=== PATIENT | male | born 1985 | race Caucasian/White ===

== ENCOUNTER 2017-01-15 21:18 | Emergency (ER) | payer OTHER ==
[~2017-01-15] VITALS: Ht 182.9 cm; Wt 115.7 kg
--- NOTE | 2017-01-15 21:33 | PHYS DOC ---
Adult General Chief Complaint Chief Complaint: HEADACHE HPI HPI Patient is a 31 year old M who presents with headache 1 week. Patient states he has had a headache over the past week and has progressively gotten worse with today being the worst. Patient denies any fevers associated with a headache. Patient does have associated nausea without vomiting. Patient states the headache came on gradual not sudden and has progressively been there for the week. Patient states the headache does not come and go. Patient was able to go to work this week. Patient denies any vision changes. Patient denies a history of migraine headaches. Patient denies any chest pain or shortness of breath. Patient has no other complaints. Review of Systems Review of Systems GEN: Denies fevers, chills, sweats HEENT: Denies blurred vision, sore throat CV: Denies chest pain RESP: Denies shortness of air, cough GI: Denies n/v/d NEURO: Headache MSK: Denies weakness, joint pain/swelling Current Medications Current Medications Current Medications Medications (Trade) Dose Ordered Sig/Noe Start Time Stop Time Status Last Admin Dose Admin Dexamethasone Sodium Phosphate (Decadron) 10 mg 1X ONCE 01/15/17 22:00 01/15/17 22:01 DC 01/15/17 21:52 10 MG Diphenhydramine HCl (Benadryl) 50 mg 1X ONCE 01/15/17 22:00 01/15/17 22:01 DC 01/15/17 21:52 50 MG Ketorolac Tromethamine (Toradol) 30 mg 1X ONCE 01/15/17 22:30 01/15/17 22:31 01/15/17 22:17 30 MG Magnesium Sulfate/ Dextrose 50 ml @ 25 mls/hr 1X ONCE 01/15/17 22:00 01/15/17 23:59 01/15/17 21:53 25 MLS/HR Metoclopramide HCl (Reglan) 10 mg 1X ONCE 01/15/17 22:00 01/15/17 22:01 DC 01/15/17 21:52 10 MG Sodium Chloride 1,000 ml @ 1,000 mls/hr 1X ONCE 01/15/17 22:00 01/15/17 22:59 01/15/17 21:53 1,000 MLS/HR Allergies Allergies Allergies Coded Allergies Type Severity Reaction Last Updated Verified No Known Drug Allergies 01/15/17 No Physical Exam Physical Exam GEN.: No apparent distress. Alert and oriented. HEENT: Head is normocephalic, atraumatic NECK: Supple. LUNGS: CTAB. HEART: RRR, S1, S2 present. Peripheral pulses intact ABDOMEN: Soft, nontender. Positive bowel sounds. EXTREMITIES: Without any cyanosis. NEUROLOGIC: Normal speech, normal tone, cranial nerves II through XII are grossly intact without any focal neurologic deficits PSYCHIATRIC: Normal affect, normal mood. SKIN: No ulcerations Current Patient Data Vital Signs Vital Signs Date Time Temp Pulse Resp B/P (MAP) Pulse Ox O2 Delivery O2 Flow Rate FiO2 01/15/17 21:26 98.1 83 18 165/103 (123) 97 Room Air 98.1 EKG EKG [] Radiology/Procedures Radiology/Procedures CT scan of the head NAD [] Course & Med Decision Making Course & Med Decision Making Pertinent Labs and Imaging studies reviewed. (See chart for details) ED course: Patient was seen and examined emergency room CT scan of the head without contrast, 30 mg of Toradol IV, 10 mg Reglan IV, 2 g of magnesium sulfate, 50 mg of Benadryl, were ordered 2220: On reexamination the patient states his headache is improved and recommended he follow up his PCP for further evaluation and management. MDM: After reviewing the chart, CC/HPI/PMH, physical exam, [radiological results], I do not believe the patient has a significant intracranial process warranting further workup and/or admission at this time. Based on the patient's history of present illness and physical findings I have low suspicion for acute subarachnoid hemorrhage and do not believe an LP is indicated at this time. On reexamination the patient has clinically improved believe the patient is stable for discharge. Patient would need to find a ride home due to the medications he received in emergency room. Additional verbal discharge instructions were provided to the patient and that if symptoms get worse or any new symptoms arise that are worrisome to the patient he is to return to the emergency room immediately [] Dragon Disclaimer Dragon Disclaimer This electronic medical record was generated, in whole or in part, using a voice recognition dictation system. Departure Departure Impression: Primary Impression: Headache Disposition: 01 HOME, SELF-CARE Condition: IMPROVED Referrals: NO PCP (PCP) Patient Instructions: General Headache Without Cause Additional Instructions: Please follow up with your family doctor in 1-2 days and return if symptoms increase Problem Qualifiers Primary Impression: Headache Headache type: unspecified Headache chronicity pattern: unspecified pattern Intractability: not intractable Qualified Codes: R51 - Headache LINK ALCANTARA DO Jan 15, 2017 21:33
[2017-01-15 22:00] VITALS: BP 144/88
[2017-01-15] MEDS ORDERED: METOCLOPRAMIDE HCL 10 MG/2 ML VIAL. IV ONE (22:00)
[2017-01-15] MEDS ORDERED: diphenhydrAMINE 50 MG/ML VIAL IVP ONE (22:00)
[2017-01-15] MEDS ORDERED: DEXAMETHASONE SOD PHOS 4 MG/ML VIAL IV ONE (22:00)
[2017-01-15] MEDS ORDERED: IV NORMAL SALINE 1000ML BAG 1,000 ML IV ONE (22:00)
[2017-01-15] MEDS ORDERED: MAGNESIUM SULFATE 2GM 50 ML IV ONE (22:00)
--- NOTE | 2017-01-15 22:08 | RAD ---
RS Compliance Statement: One or more of the following individualized dose reduction techniques were utilized for this examination: 1. Automated exposure control 2. Adjustment of the mA and/or kV according to patient size 3. Use of iterative reconstruction technique CT HEAD WITHOUT CONTRAST History: headache x 1 week Comparison: None. Procedure: Axial images are obtained of the head from the skull base through the vertex without IV contrast. Findings: The ventricles and sulci are normal for the patient's age. No mass-effect, midline shift, hemorrhage, extra-axial fluid collection, or obvious acute infarction is identified. Basilar cisterns are patent. Bone windows demonstrate no acute calvarial abnormality. Small right maxillary sinus mucous retention cyst or polyp. The visualized paranasal sinuses are clear. Mastoid air cells are well aerated. IMPRESSION: No acute intracranial abnormality. Electronically signed by: Juan Travis MD (01/15/2017 10:04 PM) [id number]
[2017-01-15] MEDS ORDERED: KETOROLAC TROMETHAMINE 30 MG/ML INJ. IV ONE (22:30)
== END 2017-01-15 22:35 | disposition home or self-care (01) ==
LOC: ER 21:18
DX: R51 Headache (principal); R11.0 Nausea
CPT/HCPCS: 70450; 96365; 96375; 99284; J1100; J1200; J1885; J2765; J7030; J7060